=== PATIENT | female | born 1995 | race Caucasian/White ===

== ENCOUNTER 2022-10-27 07:02 | Inpatient (IN) | payer OTHER ==
[~2022-10-27] VITALS: Ht 167.6 cm; Wt 90.9 kg
[2022-10-27] VITALS (7 sets, daily range): BP systolic 122–131; BP diastolic 63–79; O2SAT 99
[2022-10-27] MEDS ORDERED: PRENTAB9 PO (07:17)
[2022-10-27] MEDS ORDERED: IRON27TA2 PO (07:17)
[2022-10-27] MEDS ORDERED: VITA100T59 PO (07:17)
[2022-10-27] MEDS ORDERED: HOME MED LIST COMPLETE! XX SCH (07:55)
[2022-10-27] MEDS ORDERED: LACTATED RINGER'S 1000 ML IV STA (08:06)
[2022-10-27] MEDS ORDERED: METHYLERGONOVINE MALEATE 0.2MG/ML 1ML VIAL IM PRN (08:10)
[2022-10-27] MEDS ORDERED: CARBOPROST TROMETHAMINE 250 MCG/ML AMP IM PRN (08:10)
[2022-10-27] MEDS ORDERED: TRANEXAMIC ACID INJection 1,000 MG in NS 100 ML IV PRN (08:10)
[2022-10-27] MEDS ORDERED: OXYTOCIN INJ 10UNITS/ML 1ML VIAL IM PRN (08:10)
[2022-10-27] MEDS ORDERED: OXYTOCIN DRIP 30 UNITS in IV 1 EA IV PRN (08:10)
[2022-10-27] MEDS ORDERED: LIDOCAINE 1% MDV 20ML VIAL INFIL PRN (08:10)
[2022-10-27 08:56] LABS: BASO % 0.2 % (0.0-1.0); EOS # 0.1 10^3/uL (0.0-0.5); EOS % 1.1 % (0.0-3.0); HEMATOCRIT 34.6 % (36.0-47.0); HEMOGLOBIN 11.1 g/dl (12.0-15.5); LYMPH # 1.9 10^3/uL (1.5-5.0); LYMPH % 21.5 % (24.0-44.0); MEAN CORPUSCULAR HEMOGLOBIN 27.2 pg (27.0-33.0); MEAN CORPUSCULAR HGB CONC 32.1 g/dl (32.0-36.5); MEAN CORPUSCULAR VOLUME 84.8 fl (80.0-96.0); MONO # 0.6 10^3/uL (0.0-0.8); MONO % 6.6 % (2.0-8.0); NEUTROPHILS # 6.2 10^3/uL (1.5-8.5); NEUTROPHILS % 70.3 % (36.0-66.0); PLATELET COUNT, AUTOMATED 177 10^3/uL (150-450); RED BLOOD COUNT 4.08 10^6/uL (4.00-5.40); WHITE BLOOD COUNT 8.8 10^3/uL (4.0-10.0)
[2022-10-27] MEDS ORDERED: NALOXONE INJ 0.4MG/1ML VIAL IV PRN (09:15)
[2022-10-27] MEDS ORDERED: EPIDURAL/PCA KEYS XX PRN (09:15)
[2022-10-27] MEDS ORDERED: FENTANYL/ROPIVACAINE/NACL BAG 100 ML EPIDURAL SCH (09:15)
[2022-10-27] MEDS ORDERED: ePHEDrine SULFATE 25 MG/5 ML(5MG/ML) SYRINGE IVP PRN (09:15)
[2022-10-27] MEDS ORDERED: LR 500 ML IV PRN (09:15)
[2022-10-27] MEDS ORDERED: ACETAMINOPHEN 500 MG TAB PO PRN (10:25)
[2022-10-27] MEDS ORDERED: IBUPROFEN 600MG TAB PO PRN (10:25)
[2022-10-27] MEDS ORDERED: ONDANSETRON 4MG 2ML VIAL IV PRN (10:25)
[2022-10-27] MEDS ORDERED: RHOGAM 300MCG (1500IU) INJ IM SCH (10:25)
[2022-10-27] MEDS ORDERED: DIBUCAINE 1% OINTMENT 30GM TOP PRN (10:25)
[2022-10-27] MEDS ORDERED: METHYLERGONOVINE MALEATE 0.2 MG TAB PO PRN (10:25)
[2022-10-27] MEDS ORDERED: ACETAMINOPHEN TAB 650MG DOSE (2X325MG) PO PRN (10:25)
[2022-10-27] MEDS ORDERED: DOCUSATE SODIUM 100MG CAPSULE PO PRN (10:25)
[2022-10-27] MEDS: PRENATAL VITAMINS CHEWABLE TABLET PO SCH (12:26)
[2022-10-27] MEDS: IBUPROFEN 800 MG TAB PO PRN (17:45)
[2022-10-28 06:00] VITALS: BP 112/56; O2SAT 99
[2022-10-28 06:40] LABS: HEMATOCRIT 27.7 % (36.0-47.0); MEAN CORPUSCULAR HEMOGLOBIN 27.4 pg (27.0-33.0); MEAN CORPUSCULAR HGB CONC 32.1 g/dl (32.0-36.5); MEAN CORPUSCULAR VOLUME 85.2 fl (80.0-96.0); PLATELET COUNT, AUTOMATED 146 10^3/uL (150-450); RED BLOOD COUNT 3.25 10^6/uL (4.00-5.40); WHITE BLOOD COUNT 7.1 10^3/uL (4.0-10.0)
[2022-10-28 06:45] LABS: HEMOGLOBIN 8.9 g/dl (12.0-15.5)
[2022-10-28] MEDS: PRENATAL VITAMINS CHEWABLE TABLET PO SCH (09:20)
[2022-10-28] MEDS: IBUPROFEN 800 MG TAB PO PRN (09:21)
[2022-10-29] MEDS ORDERED: MEASLES,MUMPS,RUBELLA VACCINE INJ (MMR-II) SC.IMMUN ONE (09:00)
== END 2022-10-28 12:15 | disposition home or self-care (01) | DRG 807 ==
LOC: M LDO 07:02 → M LDI 08:08 → EDBD 08:08 → M OBS 11:31
PROVIDERS: ADMIT Obstetrics & Gynecology; ATTEND Obstetrics & Gynecology
PROC: 10E0XZZ Delivery of Products of Conception, External Approach (ICD-10-PCS; principal; 2022-10-27)
PROC: 0HQ9XZZ Repair Perineum Skin, External Approach (ICD-10-PCS; 2022-10-27)
DX: O70.0 First degree perineal laceration during delivery (principal); Z37.0 Single live birth; O69.81X0 Labor and delivery complicated by cord around neck, without compression, not applicable or unspecified; Z3A.37 37 weeks gestation of pregnancy